=== PATIENT | male | born 1945 | race Caucasian/White ===

== ENCOUNTER 2018-07-10 08:09 | Day surgery (SDC) | payer OTHER ==
[2018-07-06 15:47] LABS: Absolute Lymphocytes (CBC) 1.3 K/uL (0.7-4.9); Absolute Monocytes 0.7 K/uL (0.1-1.3); Absolute Neutrophil 3.6 K/uL (1.8-8.0); Basophils % 1.2 % (0-1.3); Eosinophils % 3.9 % (0-4.4); Hematocrit 42.4 % (39.6-49.0); Lymphocytes % 22.3 % (15.3-44.8); MCH 29.9 pg (27.0-35.0); MCV 87.2 fL (80-100); MPV 9.2 fL (7.6-11.3); Monocytes % 11.9 % (3.3-12.3); RBC Red Blood Cell Count 4.87 M/uL (4.33-5.43)
[2018-07-06 16:02] LABS: Potassium 4.3 mmol/L (3.5-5.1)
--- NOTE | 2018-07-06 16:18 | RAD REPORT ---
EXAM DESCRIPTION: RAD - Chest Pa And Lat (2 Views) - 07/06/2018 3:43 pm CLINICAL HISTORY: Preop chest, posterior chest soft tissue mass removal pending COMPARISON: January 2013 TECHNIQUE: PA and lateral views of the chest were obtained. FINDINGS: The lungs are underinflated. Interstitial markings are not substantially different from co mparison when adjusting for the technique differences. No acute infiltrate, mass or failure suspected . Heart size is normal and central vasculature is within normal limits. No pleural effusion or pne umothorax seen. Bony degenerative changes are present similar to comparison. No aortic abnormality. IMPRESSION: No acute cardiopulmonary process. Chronic interstitial findings are present similar to the comparison. No significant interval change since 2012.
--- NOTE | 2018-07-06 22:06 | EKG ---
Test Date: 2018-07-06 Test Time: 15:36:21 Web Content Specialist: JANICE MEASUREMENT RESULTS: Intervals: Rate: 53 DC: 190 QRSD: 92 QT: 426 QTc: 399 [place]: P: 63 DC: 190 QRS: 54 T: 37 INTERPRETIVE STATEMENTS: Sinus bradycardia Otherwise normal ECG Compared to ECG 12/04/2003 16:18:00 Sinus rhythm no longer present Electronically Signed On 07-06-18 22:05:46 CDT by Yonathan Oviedo
[2018-07-10] MEDS ORDERED: Ringers Lactate 1,000 ML IV ONE (09:07)
[2018-07-10] MEDS ORDERED: CEFAZOLIN/SWI 1gm 1 GM/10 ML SYR ONE (09:08)
[2018-07-10] MEDS ORDERED: FENTANYL CITR 100 MCG/2 ML ONE (09:39)
[2018-07-10] MEDS ORDERED: LIDOCAINE 2% MPF 5 ML VIAL ONE (09:40)
[2018-07-10] MEDS ORDERED: PROPOFOL 200 MG/20 ML VIAL IV ONE (09:40)
[2018-07-10] MEDS ORDERED: ONDANSETRON 4 MG/2 ML VIAL ONE (09:41)
--- NOTE | 2018-07-10 10:05 | P.BOP ---
Preoperative diagnosis: tender subQ back mass with pevious infection Postoperative diagnosis: same Primary procedure: Excisional biopsy of tender deep back subQ mass 3x3 cm with layer closure Estimated blood loss: <10cc Specimen: mass Findings: see dictation Anesthesia: General Complications: None Transferred to: Recovery Room Condition: Good
[2018-07-10] MEDS ORDERED: GLYCOPYRROLATE 0.2 MG/ML SYR ONE (10:12)
[2018-07-10 10:40] VITALS: O2SAT 96
[2018-07-10 11:44] VITALS: BP 124/78; TEMP 97.6
--- NOTE | 2018-07-10 20:48 | DS ---
Date of Discharge: 07/10/2018 Diagnosis: Tender subcutaneous back mass with previous infection. Procedure: Excisional biopsy of tender deep back subcutaneous mass 3 x 3 cm with layered closure. Disposition: Home. Activity: As tolerated. No heavy lifting. Followup: Follow up in my office 1 week. Call for appointment, [phone]. Keep area dry for 48 hour s, then may shower with dressings off and then use triple antibiotics and sterile gauze. VIRA/ELY Voice ID: [id number] Report ID: [id number]
--- NOTE | 2018-07-10 21:00 | OP ---
Date of Procedure: 07/10/2018 Surgeon: Rusty Wakefield MD Preoperative Diagnosis: Tender subcutaneous back mass with previous infection. Postoperative Diagnosis: Tender subcutaneous back mass with previous infection. Procedure: Excisional biopsy of tender deep back subcutaneous mass 3 x 3 cm with layered closure. Estimated Blood Loss: Less than 10 cc. Specimen: Mass. Anesthesia: General plus local. Indications: This is a case of a 73-year-old patient who comes to us with a back mass that was incre asing in size. It was infected at one point requiring p.o. antibiotics. His erythema improved and n ow he is here for excision with benefits, alternatives, and risks including, but not limited to infec tion, bleeding, damage to adjacent structures, anesthesia complication, recurrence, [place], and even deat h. He also understands this may not relieve any symptoms. He might need more than one surgical inte rvention, and he may require wound care in the way of wet-to-dry and saline. He understood, signed t he consent. The area of concern was marked by me and the patient in the holding room. Description Of Procedure: The patient was brought to the operating room, placed in supine position. Anesthesia was done without complication. The patient was placed in lateral decubitus position with proper protection. The back area was prepped and draped in usual sterile fashion. Local anesthesia was applied followed by wedge incision of the skin all the way down to fascia of the muscle __ deep complex mass. We did not see any pus at this moment. The patient has previous infection bef ore and the area was irrigated and then we proceeded to close this in layers. with 3-0 chromic and the skin with a mattress suture #3-0 nylon interrupted multiple times. Before t hat, hemostasis and local anesthesia was applied. The patient tolerated the procedure well. The pat ient was sent to recovery room in stable condition. Sponge count and instrument counts were correct. VIRA/ELY Voice ID: [id number] Report ID: [id number]
== END 2018-07-10 11:30 | disposition home or self-care (01) ==
LOC: OR 08:09
PROVIDERS: ATTEND Surgery
PROC: 0JB70ZZ Excision of Back Subcutaneous Tissue and Fascia, Open Approach (ICD-10-PCS; principal; 2018-07-10 09:45)
DX: L72.0 Epidermal cyst (principal); I10 Essential (primary) hypertension; E78.00 Pure hypercholesterolemia, unspecified; Z88.2 Allergy status to sulfonamides; Z79.82 Long term (current) use of aspirin
CPT/HCPCS: 11403; 36415; 71046; 80048; 85025; 88304; 93005; J0690; J2405; J2704; J3010; 88305

== ENCOUNTER 2019-01-05 10:41 | Day surgery (SDC) | payer OTHER ==
[2019-01-05] MEDS ORDERED: Ringers Lactate 1,000 ML IV ONE (11:36)
[2019-01-05] MEDS ORDERED: CEFAZOLIN/SWI 1gm 1 GM/10 ML SYR ONE (12:36)
[2019-01-05] MEDS ORDERED: BUPIVACAINE 0.5% PF 10 ML VIAL ONE ×2 (12:49→13:37)
[2019-01-05] MEDS ORDERED: MIDAZOLAM HCL 2 MG/2 ML INJ ONE (13:33)
[2019-01-05] MEDS ORDERED: PROPOFOL 200 MG/20 ML VIAL IV ONE (13:33)
[2019-01-05] MEDS ORDERED: FENTANYL CITR 100 MCG/2 ML ONE (13:33)
[2019-01-05] MEDS ORDERED: LIDOCAINE 2% MPF 5 ML VIAL ONE (13:33)
[2019-01-05] MEDS ORDERED: EPHEDRINE SULF 50 MG/ML VIAL ONE ×2 (14:07)
[2019-01-05] MEDS ORDERED: KETOROLAC 30 MG/ML INJ ONE (14:11)
--- NOTE | 2019-01-05 14:14 | P.BOP ---
Preoperative diagnosis: infected large upper back subcutaneous mass Postoperative diagnosis: same Primary procedure: excisional bx infected large upper back subcutaneous mass 6.5x4x1.5 cm Estimated blood loss: <10cc Specimen: mass Findings: mass with infection down to fascia of muscle Anesthesia: General Complications: None Drain(s): Other Transferred to: Recovery Room Condition: Good
[2019-01-05 15:02] VITALS: BP 104/65; TEMP 97.3; O2SAT 100
--- NOTE | 2019-01-06 01:12 | OP ---
Date of Procedure: 01/05/2019 Surgeon: Rusty Wakefield MD Preoperative Diagnosis: Infected tender large upper back subcutaneous mass. Postoperative Diagnosis: Infected tender large upper back subcutaneous mass. Procedure: Excisional biopsy of infected large upper back subcutaneous mass, about 6.5 x 4 x 1.5 cm. Specimen: Mass. Findings: This mass goes deep into the back area. The infection involved the fascia of the muscle, so that fascia had to remove with the specimen. Muscle seems to be with no infection. Indications: This is the case of a male, comes to us with very tender mass in the left upper back a few hours ago. He is scheduled for excision biopsy with drainage of an abscess with benefits, altern atives, and risks including, but not limited to infection, bleeding, damage to adjacent structures, a nesthesia complication, recurrence, [place], and even . He also understands this may not relieve any symptoms, he might need more than one surgical intervention. He will require wound care. He signed a consent. Description Of Procedure: The patient was brought to the operating room, placed in supine position. Anesthesia was done without complication. The back area was prepped and draped in a sterile fashion after the patient placed in the lateral decubitus position with proper protection. A time-out was c alled. Incision was made in the skin. Incision was carried down to deep subcutaneous tissue, where we found the mass in that region with infection and abscess. Mass was completely excised. This invo lved the fascia of the muscle, so it had to come with the specimen. The muscle was irrigated. It lo oked intact with no intramuscular abscess. The area was irrigated and packed with wet-to-dry dressing after hemostasis. The patient was sent to recovery in stable con dition. VIRA/ELY Voice ID: [id number] Report ID: [id number]
--- NOTE | 2019-01-06 01:15 | DS ---
Date of Discharge: 01/05/2019 Diagnosis: Infected large upper back subcutaneous mass. Procedure: Excisional biopsy of infected large upper back subcutaneous mass, 6.5 x 4 x 1.5 cm. Disposition: Home. Activity: As tolerated. No heavy lifting. Followup: Follow up in my office in 1 week. Call for appointment, [phone]. Medications: The patient already have prescribed antibiotics and pain medication previously. VIRA/ELY Voice ID: [id number] Report ID: [id number]
== END 2019-01-05 15:40 | disposition home or self-care (01) ==
LOC: OR 10:41
PROVIDERS: ATTEND Surgery
PROC: 0JB70ZZ Excision of Back Subcutaneous Tissue and Fascia, Open Approach (ICD-10-PCS; principal; 2019-01-05 13:00)
DX: L72.0 Epidermal cyst (principal); L02.212 Cutaneous abscess of back [any part, except buttock and flank]; L03.312 Cellulitis of back [any part except buttock and flank]; E78.00 Pure hypercholesterolemia, unspecified; I10 Essential (primary) hypertension; Z79.82 Long term (current) use of aspirin; Z79.899 Other long term (current) drug therapy
CPT/HCPCS: 21933; 87070; 87205; 88304; 87075; J2704; J2250; J3010; J0690; 88305

== ENCOUNTER 2022-11-24 08:17 | Day surgery (SDC) | payer OTHER ==
--- NOTE | 2022-11-24 08:21 | RAD REPORT ---
EXAM DESCRIPTION: Sherry Pa And Lat (2 Views)11/24/2022 8:15 am CLINICAL HISTORY: Preop for hernia repair. Hypertension COMPARISON: 2019 FINDINGS: Moderate bilateral interstitial lung opacities have the appearance of pulmonary fibrosis. This could be further evaluated with CT. Heart is normal size
[2022-11-24 08:28] LABS: Absolute Lymphocytes (CBC) 1.4 K/uL (0.7-4.9); Hematocrit 42.8 % (39.6-49.0); Lymphocytes % 19.5 % (15.3-44.8); MCV 87.3 fL (80-100); MPV 9.3 fL (7.6-11.3)
[2022-11-24 08:39] LABS: Potassium 4.3 mEq/L (3.5-5.1)
[2022-11-24] MEDS ORDERED: Ringers Lactate 1,000 ML IV ONE ×2 (08:50→12:00)
[2022-11-24] MEDS ORDERED: CEFAZOLIN SODIUM 1 GM/VIAL ONE (10:31)
[2022-11-24] MEDS ORDERED: propofoL 200 MG/20 ML VIAL IV ONE (10:46)
[2022-11-24] MEDS ORDERED: ROCURONIUM 50 MG/5 ML VIAL IV ONE (10:51)
[2022-11-24] MEDS ORDERED: FENTANYL CITR 100 MCG/2 ML ONE (10:51)
[2022-11-24] MEDS ORDERED: LIDOCAINE 2% MPF 5 ML VIAL ONE (10:55)
[2022-11-24] MEDS ORDERED: MIDAZOLAM HCL 2 MG/2 ML INJ ONE (10:56)
--- NOTE | 2022-11-24 12:02 | P.BOP ---
Preoperative diagnosis: tender reducible left inguinal hernia Postoperative diagnosis: SAME Primary procedure: Laparoscopic repair of tender reducible left inguinal hernia with mesh Mink Slicer: CORTEZ SUTTON (SOLID PROPELLANT PROCESSOR) Estimated blood loss: <10cc Specimen: none Findings: as above Anesthesia: General Complications: None Transferred to: Recovery Room Condition: Good
[2022-11-24] MEDS ORDERED: NEOSTIGMINE 1 MG/ML -10 ML VIAL ONE (12:04)
[2022-11-24] MEDS ORDERED: KETOROLAC 30 MG/ML INJ ONE (12:04)
[2022-11-24] MEDS ORDERED: GLYCOPYRROLATE 0.2 MG/ML SYR ONE (12:05)
[2022-11-24] MEDS ORDERED: Mastisol Adhesive Liq ONE (12:07)
[2022-11-24] MEDS ORDERED: TAMSULOSIN 0.4 MG SR CAP PO ONE (12:09)
[2022-11-24] MEDS ORDERED: CODEINE 30MG/APAP 300MG TAB PO ONE (12:10)
[2022-11-24 13:07] VITALS: O2SAT 99
[2022-11-24] MEDS ORDERED: TAMSULOSIN 0.4 MG SR CAP ONE (13:26)
[2022-11-24] MEDS ORDERED: CODEINE 30MG/APAP 300MG TAB ONE (13:27)
[2022-11-24 13:57] VITALS: BP 119/68; TEMP 97.3
--- NOTE | 2022-11-24 17:21 | EKG ---
Test Date: 2022-11-24 Test Time: 07:58:56 Manager Assurance: MARLENY MEASUREMENT RESULTS: Intervals: Rate: 53 W[place]: 198 QRSD: 88 QT: 416 QTc: 390 [place]: P: 69 [place]: 198 QRS: 57 T: 57 INTERPRETIVE STATEMENTS: Sinus bradycardia Otherwise normal ECG Compared to ECG 01/03/2019 17:25:37 Sinus rhythm no longer present Electronically Signed On 11-24-22 17:20:12 CDT by Sal Childs
== END 2022-11-24 13:54 | disposition home or self-care (01) ==
LOC: OR 08:17
PROVIDERS: ATTEND Surgery
PROC: 0YU64JZ Supplement Left Inguinal Region with Synthetic Substitute, Percutaneous Endoscopic Approach (ICD-10-PCS; principal; 2022-11-24 12:15)
DX: K40.90 Unilateral inguinal hernia, without obstruction or gangrene, not specified as recurrent (principal); I10 Essential (primary) hypertension; E78.00 Pure hypercholesterolemia, unspecified; M19.90 Unspecified osteoarthritis, unspecified site; M10.9 Gout, unspecified
CPT/HCPCS: 93005; 85025; 80048; 36415; 71046; 49650; J2704; J2710; J2001; J2250; J3010; J7120 ×2; J0690

== ENCOUNTER 2024-11-01 10:18 | Day surgery (SDC) | payer OTHER ==
[2024-10-30 15:03] LABS: Absolute Basophils 0.1 K/uL (0-0.5); Absolute Eosinophils 0.2 K/uL (0-0.5); Absolute Lymphocytes (CBC) 1.4 K/uL (0.7-4.9); Absolute Monocytes 0.6 K/uL (0.1-1.3); Absolute Neutrophil 4.5 K/uL (1.8-8.0); Basophils % 1.1 % (0-1.3); Eosinophils % 2.6 % (0-4.4); Hematocrit 43.3 % (39.6-49.0); Hemoglobin 14.7 g/dL (13.6-17.9); Lymphocytes % 20.9 % (15.3-44.8); MCH 30.4 pg (27.0-35.0); MCV 89.5 fL (80-100); MPV 9.1 fL (7.6-11.3); Monocytes % 9.4 % (3.3-12.3); Platelets 161 thou/uL (152-406); RBC Red Blood Cell Count 4.84 M/uL (4.33-5.43); Red Cell Distribution Width 14.2 % (12.1-15.2)
[2024-10-30 15:16] LABS: Anion Gap 8.2 mEq/L (5.0-15.0); Potassium 4.2 mEq/L (3.5-5.1)
[2024-11-01] MEDS: Ringers Lactate 1,000 ML IV ONE (10:45)
[2024-11-01] MEDS ORDERED: propofoL 200 MG/20 ML VIAL IV ONE ×2 (11:28→12:15)
[2024-11-01] MEDS ORDERED: LIDOCAINE 1% MPF 5 ML VIAL ONE (11:28)
[2024-11-01 13:44] VITALS: O2SAT 98
[2024-11-01 13:48] VITALS: BP 151/83; TEMP 97
--- NOTE | 2024-11-01 16:52 | EKG ---
Test Date: 2024-10-30 Test Time: 15:47:31 Analyst [employer]ing: MARLENY MEASUREMENT RESULTS: Intervals: Rate: 56 [place]: 200 QRSD: 96 QT: 424 QTc: 409 [place]: P: 72 LA: 200 QRS: 62 T: 67 INTERPRETIVE STATEMENTS: Sinus bradycardia Otherwise normal ECG Compared to ECG 11/24/2022 07:58:56 No significant changes Electronically Signed On 11-01-24 16:46:08 DISTRIBUTION FIELD ENGINEER by Brodie James
== END 2024-11-01 13:11 | disposition home or self-care (01) ==
LOC: OR 10:18
PROVIDERS: ATTEND Surgery
PROC: 0DJD8ZZ Inspection of Lower Intestinal Tract, Via Natural or Artificial Opening Endoscopic (ICD-10-PCS; principal; 2024-11-01 12:00)
DX: K92.1 Melena (principal); I10 Essential (primary) hypertension; E78.00 Pure hypercholesterolemia, unspecified; K64.8 Other hemorrhoids
CPT/HCPCS: 93005; 85025; 80048; 36415; 45378; J2704 ×2; J2003; J7120